=== PATIENT | male | born 1990 | race Caucasian/White ===

== ENCOUNTER 2018-03-11 23:53 | Emergency (ER) | payer SELFPAY ==
--- NOTE | 2018-03-11 23:56 | NUR ---
PATIENT CALLED TO BE TRIAGE NO RESPONSE PATIENT LEFT WITHOUT BEING SEEN BY DR. RODRÍGUEZ. NO FURTHER CARE PROVIDED FOR PATIENT.
== END 2018-03-11 23:54 | disposition left against medical advice (07) ==
LOC: MED 23:53
DX: Z53.21 Procedure and treatment not carried out due to patient leaving prior to being seen by health care provider (principal)